=== PATIENT | female | born 1995 | race Caucasian/White ===

== ENCOUNTER 2017-06-12 17:27 | Emergency (ER) | payer BC ==
[2017-06-12 17:32] VITALS: PULSE 64; O2SAT 98
--- NOTE | 2017-06-12 18:00 | EDPHY ---
H & P Smoking Status: Never smoked Time Seen by Provider: 06/12/17 17:34 HPI/ROS: CHIEF COMPLAINT: Visual changes, headache HISTORY OF PRESENT ILLNESS: 22-year-old female presents to the emergency department complaining of visual changes and headache. Symptoms began 3 days ago. Initially started with lost vision in her right eye. She then developed a diffuse headache. Visual changes lasted approximately 20 minutes and then resolved completely. She states that the following 2 days she felt fine and had no headache or visual changes. She states that she had recurring symptoms today with visual changes and lingering headache. She took some Tylenol and does feel slight improvement. She still has some head pressure. She denies neck or back pain. Denies any reported trauma. No chest pain or difficulty breathing. No fevers or chills. History of multiple concussions otherwise no history of migraine headaches. She has never had these symptoms in the past. REVIEW OF SYSTEMS: Constitutional: No fever, no chills. Eyes: Visual changes as above. No double vision. ENT: No sore throat. Respiratory: No cough, no shortness of breath. Cardiac: No chest pain. Gastrointestinal: No abdominal pain, vomiting or diarrhea. Genitourinary: No dysuria. Musculoskeletal: No neck or back pain. Skin: No rashes. Neurological: headache. (Italia Flanagan) Past Medical/Surgical History: Concussion, orthopedic surgeries (Italia Flanagan) Social History: Single (Italia Flanagan) Physical Exam: General Appearance: Alert, no distress. Vital signs are stable. Eyes: Pupils equal and round. Extraocular motions are all intact. ENT: Mouth: Mucous membranes moist. Respiratory: No wheezing, rhonchi, or rales, lungs are clear to auscultation. Cardiovascular: Regular rate and rhythm. Gastrointestinal: Abdomen is soft and nontender, no masses, no rebound or guarding, bowel sounds normal. Neurological: Alert and oriented x 3, cranial nerves II through XII grossly intact Skin: Warm and dry, no rashes. Musculoskeletal: Nontender to palpate along the cervical, thoracic or lumbar spine. Neck is supple. Extremities: Full range of motion and no peripheral edema. Psychiatric: Patient is oriented X 3, there is no agitation. (Italia Flanagan M) Constitutional: Initial Vital Signs Heart Rate 64 06/12/17 17:29 Respiratory Rate 18 08/20/17 17:29 Blood Pressure 122/74 H 06/12/17 17:29 O2 Sat (%) 98 06/12/17 17:29 O2 Delivery Mode Room Air Allergies/Adverse Reactions: No Known Allergies Allergy (Unverified 06/12/17 17:32) Home Medications: Medication Instructions Recorded Iud 06/12/17 Medical Decision Making - Diagnostics Imaging: Discussed imaging studies w/ patent counsel Radiologist - Diagnostics Imaging Results: Imaging Impressions Brain MRI 06/12/17 18:02 Impression: Normal MRI of the brain, without and with contrast. Findings and recommendations discussed with Emergency Department, Italia Flanagan PA-C, at 1920 hours, on June 12, 2017. Final report concurs with initial preliminary interpretation. ED Course/Re-evaluation: 22-year-old female presents to the emergency department with visual changes and headache. She has no history of similar symptoms. She has a normal neurologic examination. Patient had an i-STAT. She denies . Last menstrual period began 3 or 4 days ago. Did discuss the possibility of this being atypical migraine versus possible multiple sclerosis. I discussed MRI of the brain with the patient and the patient verbalized understanding and agreed. MRI of the brain was normal. Patient was given Neurology referral. She will return if she has any recurring symptoms or any other concerns. (Italia Flanagan) Differential Diagnosis: Headache including but not limited to subarachnoid hemorrhage, migraine headache , tension headache and infectious causes such as meningitis, pharyngitis and sinusitis. (Italia Flanagan) - Data Points Laboratory Results: 06/12/17 17:58 POC Hgb 16.3 gm/dL gm/dL (12.6-16.3) POC Hct 48 % H % (38-47) POC Sodium 142 mEq/L mEq/L (134-144) POC Potassium 3.4 mEq/L mEq/L (3.3-5.0) POC Chloride 103 mEq/L mEq/L (97-110) POC BUN 16 mg/dL mg/dL (7-23) POC Creatinine 0.8 mg/dL mg/dL (0.6-1.0) POC Glucose 96 mg/dL mg/dL (70-100) Point of Care Test Results: 06/12/17 17:58 POC Sodium 142 POC Potassium 3.4 POC Chloride 103 POC BUN 16 POC Creatinine 0.8 POC Glucose 96 Departure - Departure Disposition: Home, Routine, Self-Care Clinical Impression: Headache Qualifiers: Headache type: unspecified Headache chronicity pattern: acute headache Intractability: not intractable Qualified Code(s): R51 - Headache Condition: Good Instructions: Acute Headache (ED) Additional Instructions: MRI brain was normal. You should follow up with a neurologist. Return if you have any other concerns. Referrals: Korey Virk DO [Medical Doctor] - 5-7 days, call for appt. (Neurologist on- call)
[2017-06-12] MEDS ORDERED: GADOBUTROL 10 ML VIAL IVP ONE (18:41)
[2017-06-12 19:36] VITALS: BP 107/72; RESP 16
== END 2017-06-12 19:37 | disposition home or self-care (01) ==
DX: R51 Headache (principal)
CPT/HCPCS: 82947-QW; A9585